=== PATIENT | female | born 1995 | race Two or more races ===

== ENCOUNTER → 2024-01-28 | Outpatient (CLI) | payer OTHER, SELFPAY ==
[2024-01-28 08:57] LABS: Vitamin B12 548 pg/mL (211-911)
[2024-01-28 09:04] LABS: Iron 34 mcg/dL (50-170)
== END | disposition home or self-care (01) ==
LOC: COPL 07:15
PROVIDERS: PCP Nurse Practitioner Family; Referring Provider Nurse Practitioner Family; Visit Provider Nurse Practitioner Family
DX: D64.9 Anemia, unspecified (principal); R53.83 Other fatigue
CPT/HCPCS: 36415; 82607; 83540

== ENCOUNTER → 2024-03-20 | Outpatient (CLI) | payer OTHER, SELFPAY ==
[2024-03-20 12:36] LABS: Beta HCG,Quantitative 2555 mIU/mL (<5.0)
== END | disposition home or self-care (01) ==
LOC: COPL 11:12
PROVIDERS: PCP Nurse Practitioner Family; Referring Provider Nurse Practitioner Family; Visit Provider Nurse Practitioner Family
DX: Z32.01 Encounter for pregnancy test, result positive (principal)
CPT/HCPCS: 36415; 84702

== ENCOUNTER → 2024-03-21 | Outpatient (CLI) | payer OTHER, SELFPAY ==
[2024-03-21 09:38] LABS: Beta HCG,Quantitative 3301 mIU/mL (<5.0)
== END | disposition home or self-care (01) ==
LOC: COPL 08:27
PROVIDERS: PCP Nurse Practitioner Family; Referring Provider Nurse Practitioner Family; Visit Provider Nurse Practitioner Family
DX: Z32.01 Encounter for pregnancy test, result positive (principal)
CPT/HCPCS: 36415; 84702

== ENCOUNTER 2024-05-15 05:47 | Emergency (ER) | payer OTHER, SELFPAY ==
[2024-05-15 06:29] VITALS: BP 154/76; PULSE 60; RESP 18; TEMP 36.8; O2SAT 100
--- NOTE | 2024-05-15 06:48 | XR_ITS ---
Examination: Complete OB ultrasound, less than 14 weeks, transabdominal Date and time of exam: May 15, 2024 0733 hours INDICATIONS: Onset heavy vaginal bleeding today Technique: Obstetrical ultrasound images less than 14 weeks performed via transabdominal imaging Findings: A normal shaped single intrauterine gestation is present in the uterus. pole 7.0 cm corresponds to 13 weeks 2 day gestational age Cardiac motion 144 BPM Ultrasonographic survey of visible and placental structures unremarkable. Amniotic fluid volume appears appropriate for this estimated gestational age. Right ovary 3.3 cm arterial flow Left ovary 3.4 cm arterial flow IMPRESSION: Viable intrauterine gestation 13 weeks 2 days.
--- NOTE | 2024-05-15 07:07 | PD.EDVAGBL ---
ED OB Contraction Preg RMI/HPI General Chief complaint: Vaginal Bleeding Stated complaint: 14WKs PG Vaginal Bleeding Time Seen by Provider: 05/15/24 06:27 Source: patient Arrival date/time: 05/15/24 05:47 This is a 29-year-old female who presents to the emergency department with complaints of vaginal spotting. Patient is approximately 14 weeks of gestation 1 para 0 A1. Reports that she woke up this morning to urinate and noticed blood in the toilet bowl and a blood clot. Patient denies any pelvic pain or dysuria. No nausea no vomiting no fever. Mode of arrival: ambulatory Limitations: no limitations Related Data Previous Rx's ?Medication ?Instructions ?Recorded peg 3350-electrolytes 227.1 240 ml PO Q10M #1 ea 12/01/18 gram-21.5 gram-6.36gram oral powder packet (Golytely) cephalexin 750 mg capsule (Keflex) 750 mg PO BID #10 caps 11/30/20 meloxicam 7.5 mg tablet 7.5 mg PO QDAY #10 tabs 03/18/22 Allergies Allergy/AdvReac Type Severity Reaction Status Date / Time No Known Allergies Allergy Verified 03/18/22 14:32 Review of Systems Review of Systems Systems Reviewed: All systems reviewed, normal except as documented Narrative Review of Systems: Gen: No fever, no chills, no weight loss EYES: No discharge, no visual changes, no pain HEENT: No ear pain, no congestion, no sore throat PULM: No shortness of breath, no cough, no congestion CV: No chest pain, no dyspnea on exertion, no palpitations GI: No nausea, no vomiting, no diarrhea, no pain, no constipation : No frequency, no urgency, no dysuria, + vaginal bleeding Musc/skel: No joint pain, no back pain Skin: No rash Psyc: No hallucinations, no depression Heme/Lymph: No easy bleeding or bruising tendencies Neuro: No weakness, no headache ED Exam General Limitations: Present no limitations General appearance: Present alert and in no apparent distress Head Head exam: Present atraumatic Eye Eye exam: Present normal appearance, PERRL and EOMI ENT ENT exam: Present normal exam, normal oropharynx and mucous membranes moist Neck Neck exam: Present normal inspection, full ROM and trachea midline Chest Chest inspection: Present normal inspection and symmetric chest wall rise Respiratory Respiratory exam: Present normal lung sounds bilaterally Cardiovascular Cardiovascular exam: Present regular rate, normal rhythm and normal heart sounds Abdominal Exam Abdominal exam: Present soft and normal bowel sounds; Absent distention, tenderness or guarding Extremities Exam Extremities exam: Present normal inspection and full ROM Back Exam Back exam: Present normal inspection and full ROM Neurological Exam Neurological exam: Present alert, oriented X3 and CN II-XII intact Psychiatric Psychiatric exam: Present normal affect and normal mood Skin Skin exam: Present warm, dry, intact and normal color Course Quality Measures none Orders Category Date Time Status US OB <= 14 weeks fetus Stat Exams 05/15/24 06:48 Completed ABO/RH Type Stat Lab 05/15/24 08:13 Completed Beta HCG,Quantitative Stat Lab 05/15/24 08:13 Completed CBC Stat Lab 05/15/24 08:13 Completed Comprehensive Metabolic Panel Stat Lab 05/15/24 08:13 Completed Urinalysis Stat Lab 05/15/24 06:50 Completed Urine Culture Stat Lab 05/15/24 06:50 Received Vital Signs Vital signs: Vital Signs Temperature 98.2 F 05/15/24 06:29 Pulse Rate 60 05/15/24 06:29 Respiratory Rate 18 05/15/24 06:29 Blood Pressure 154/76 H 05/15/24 06:29 Pulse Oximetry (%) 100 05/15/24 06:29 Oxygen Delivery Method Room Air 05/15/24 06:29 Vaginal Bleeding MDM Narrative MDM Narrative: .Mild bleeding for 1 day. Which has resolved. Patient's vital signs stable patient's ultrasound demonstrates a viable . Patient has normal bleeding at this time no pelvic pain no abdominal pain. Patient will be discharged home for follow-up with her OB Patient data [facility] records [facility] Clinical information provided by:: patient Social determinants that could affect healthcare access:: none Patient has the following chronic illnesses:: None How is presenting disease/condition affected by chronic disease/condition?: no chronic disease Evaluation data The following diagnostics were reviewed and interpreted by me:: lab results and radiology exam(s) Lab and/or radiology exams considered but not ordered:: No Interpretation Summary: See above Examination: Complete OB ultrasound, less than 14 weeks, transabdominal Date and time of exam: May 15, 2024 0733 hours INDICATIONS: Onset heavy vaginal bleeding today Technique: Obstetrical ultrasound images less than 14 weeks performed via transabdominal imaging Findings: A normal shaped single intrauterine gestation is present in the uterus. pole 7.0 cm corresponds to 13 weeks 2 day gestational age Cardiac motion 144 BPM Ultrasonographic survey of visible and placental structures unremarkable. Amniotic fluid volume appears appropriate for this estimated gestational age. Right ovary 3.3 cm arterial flow Left ovary 3.4 cm arterial flow IMPRESSION: Viable intrauterine gestation 13 weeks 2 days. Medications / Prescriptions Medications or Prescriptions considered but not ordered:: No Medication administrations:: None Consultations Consultation(s) initiated? (list below): No Diagnosis Vaginal Bleeding Differential Diagnosis: missed , threatened , dysfunctional uterine bleeding, incomplete and vaginal bleeding Most likely diagnosis given after review of the tests above:: Threatened Admission Indicated Admission indicated?: not indicated Admission Request Was there a request for admission?: No Disposition Plan Disposition Plan: Discharge Discharge Attestation Discharge Attestation: The patient and all family members were given an opportunity to ask questions and understood the discharge instructions. Discharge instructions specifically effects, indications for sooner follow up or return to the emergency department, and the expected course of current diagnosis. Patient condition: Stable Discharge Plan Plan Patient Disposition: HOME (Self Care) Patient condition on transfer: Stable Prescriptions/Referrals Prescriptions/Med Rec: No Action Golytely 227.1-21.5-6.36 gram powder in packet 240 ml PO Q10M Qty: 1 0RF Rx Instructions: until fecal effluent is clear; do not exceed a total volume [id number] mL cephalexin [Keflex] 750 mg capsule 750 mg PO BID Qty: 10 0RF meloxicam 7.5 mg tablet 7.5 mg PO QDAY Qty: 10 0RF Referrals: No Primary/Family,Physician [Primary Care Provider] - In 1 week Problem List Clinical Impression: Vaginal bleeding, Threatened Patient/Caregiver Discharge Instructions Discharge Activity: activity as tolerated Education Materials: ED Possible Miscarriage ... Additional Instructions: It is very important that you follow-up with your EN[facility]IR[facility]OTE[facility]IST for the bleeding 2 days.. Your ultrasound demonstrates a viable intrauterine positive of 13 weeks. Please no heavy lifting, drink plenty of water. Your hCG is a good number for your . [id number] Return to the emergency department this any worsening symptoms any condition. Print Language: Zambian Stand Alone Forms: Dary Award Info., Work/School Release, Patient Portal Info Letter DISHA/BUSINESS OPERATIONS CONSULTANT Supervising Physician PA/BUSINESS OPERATIONS CONSULTANT Supervising Physician: Dr Winkler
[2024-05-15 07:24] LABS: Collection Type, Urine Clean Catch
[2024-05-15 07:39] LABS: Bacteria,Urine Rare; Bilirubin,Urine Negative (Negative); Blood,Urine 2+ (Negative); Clarity,Urine Clear (Clear/Hazy); Color,Urine Lt-Yellow (Lt Yel-Yel); Glucose, Urine Negative (Negative); Ketones,Urine Negative (Negative); Leukocyte Esterase,Urine Negative (Negative); Nitrite,Urine Negative (Negative); PH,Urine 6.5 (5.0-7.0); Protein,Urine Negative (Neg - Trace); RBC,Urine 2 /hpf (0-3); Specific Gravity,Urine 1.008 (1.001-1.035); Squamous Epithelial Cell,Urine 4 /hpf (0-5); Urobilinogen,Urine Negative mg/dL (0.0-1.0); WBC,Urine 2 /hpf (0-5)
[2024-05-15 08:12] VITALS: BP 166/80; PULSE 76; RESP 17; TEMP 36.6; O2SAT 99
[2024-05-15 08:44] LABS: Basophils % (Auto) 0 % (0-2.5); Eosinophils % (Auto) 0 % (0-10); Hematocrit 33.8 % (36.0-46.0); Hemoglobin 11.4 g/dL (12.0-16.0); Immature Granulocytes % (Auto) 0 % (0-0); Immature Granulocytes Auto 0.04 Thou/mm3 (0.00-0.00); Lymphocytes # (Auto) 2.2 Thou/mm3 (1.0-4.8); Lymphocytes % (Auto) 22 % (10-50); Mean Corpuscular HGB Conc 33.7 g/dl (31.0-37.0); Mean Corpuscular Hemoglobin 26.8 pg (25.0-35.0); Mean Corpuscular Volume 79 fL (80-100); Monocytes # (Auto) 0.4 Thou/mm3 (0.0-0.8); Monocytes % (Auto) 4 % (0-12); Neutrophils # (Auto) 7.5 Thou/mm3 (1.8-7.7); Neutrophils % (Auto) 74 % (37-80); Nucleated Red Blood Cell % 0 /100 WBC (0); Platelet Count 287 Thou/mm3 (140-440); RDW Standard Deviation 49.3 fL (36.4-46.3); Red Blood Count 4.26 Miln/mm3 (4.00-5.20); White Blood Count 10.2 Thou/mm3 (3.6-11.0)
[2024-05-15 09:04] LABS: Alanine Aminotransferase 11 U/L (10-49); Albumin, Serum 4.2 gm/dL (3.5-5.0); Albumin/Globulin Ratio 1.4 (1.2-2.2); Alkaline Phosphatase 72 U/L (46-116); Anion Gap 11 (7-16); Aspartate Amino Transferase 13 U/L (0-34); BUN/Creatinine Ratio 12 Ratio (12-20); Bilirubin,Total 0.2 mg/dL (0.3-1.2); Blood Urea Nitrogen 6 mg/dL (9-23); Calcium 9.6 mg/dL (8.3-10.6); Calcium (Corrected) 9.6 mg/dL (8.5-10.1); Carbon Dioxide 24.9 mMol/L (20.0-31.0); Chloride 102 mMol/L (98-107); Creatinine (Component) 0.5 mg/dL (0.6-1.3); Globulin 2.9 gm/dL (2.3-3.5); Glucose 85 mg/dL (74-106); Osmolality,Calculated 272 (275-295); Potassium 4.1 mMol/L (3.4-5.1); Sodium 138 mMol/L (136-145); Total Protein 7.1 gm/dL (5.7-8.2); eGFR > 60 See Note
[2024-05-15 09:38] LABS: Beta HCG,Quantitative 38733 mIU/mL (<5.0)
[2024-05-15 10:00] VITALS: BP 109/77; PULSE 89; RESP 12; TEMP 36.7; O2SAT 100
== END 2024-05-15 10:42 | disposition home or self-care (01) ==
PROVIDERS: Nurse Practitioner Primary Care; Emergency Provider Emergency Medicine
DX: O20.0 Threatened abortion (principal); Z3A.13 13 weeks gestation of pregnancy
CPT/HCPCS: 36415; 76801; 80053; 81001; 84702; 85025; 86900; 86901; 87086; 99284

== ENCOUNTER 2024-07-06 11:22 | Outpatient (CLI) | payer OTHER, SELFPAY ==
[2024-07-06 11:33] VITALS: BP 122/82; PULSE 79
== END 2024-07-06 11:45 | disposition home or self-care (01) ==
LOC: S4S1 11:23 → S4SX 11:23
PROVIDERS: Referring Provider Obstetrics & Gynecology; Visit Provider Obstetrics & Gynecology
DX: Z34.02 Encounter for supervision of normal first pregnancy, second trimester (principal); Z3A.20 20 weeks gestation of pregnancy

== ENCOUNTER 2024-07-25 10:58 | Emergency (ER) | payer OTHER, SELFPAY ==
[2024-07-25 11:13] VITALS: BP 142/92; PULSE 99; RESP 20; TEMP 37; O2SAT 98; BMI 57.8
--- NOTE | 2024-07-25 11:34 | EKG_ITS ---
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
--- NOTE | 2024-07-25 11:38 | PD.EDHA ---
ED Headache RME/HPI General Chief Complaint: Headache Stated Complaint: HEADACHE, NUASEA, DIZZY; 23 WKS GRAV1 PARA0 Time Seen by Provider: 07/25/24 11:10 Arrival date/time: 07/25/24 10:58 Limitations: no limitations RME / HPI RME / HPI Narrative: 29 year old female with no stated chronic medical history, currently 23 weeks gestational age, presents to the ED for evaluation of headache today. Reports headache began 2 days ago and has had no relief with Tylenol, last taken at 09:00 AM today. Additionally reports she occasionally feels her heart racing . Patient states her last ultrasound performed ~ 3 weeks ago was normal. Denies any history of similar symptoms. Denies fevers, chills, chest pain, cough, shortness of breath, abdominal pain, back pain, or vaginal spotting. Denies any history of hypertension. Related Data Home Medications ?Medication ?Instructions ?Recorded ?Confirmed aspirin 81 mg chewable tablet 81 mg PO QDAY 07/06/24 07/06/24 (Aspirin Childrens) ferrous sulfate 325 mg (65 mg mg PO 07/06/24 iron) tablet,delayed release sertraline 50 mg tablet mg 07/06/24 Previous Rx's ?Medication ?Instructions ?Recorded cephalexin 500 mg capsule 500 mg PO QID #14 caps 07/25/24 Allergies Allergy/AdvReac Type Severity Reaction Status Date / Time No Known Allergies Allergy Verified 07/06/24 11:29 Review of Systems Review of Systems Systems Reviewed: All systems reviewed, normal except as documented Past Medical History Past Medical History NEUROLOGIC: Negative Neurological Disorders CARDIAC: Negative Cardiac Disorders or Congestive Heart Failure RESPIRATORY: Negative Chronic Obstructive Pulmonary Disease (COPD) GASTROINTESTINAL: Negative Gastrointestinal Disorders GENITOURINARY: Negative Genitourinary Disorders or Renal Disease MUSCULOSKELETAL: Negative Musculoskeletal Disorders ENDOCRINE: Negative Diabetes Mellitus Type 1 or Diabetes Mellitus Type 2 PSYCHO/SOCIAL: Negative Psychiatric Problems OTHER HISTORY: Negative Hospitalization Social History SMOKING STATUS: Never smoker ED Exam General Limitations: Present no limitations General appearance: Present alert and in no apparent distress Head Head exam: Present atraumatic, normocephalic and normal inspection Eye Eye exam: Present normal appearance, PERRL and EOMI ENT ENT exam: Present normal exam, normal oropharynx and mucous membranes moist Neck Neck exam: Present normal inspection, full ROM and trachea midline Chest Chest inspection: Present normal inspection and symmetric chest wall rise Respiratory Respiratory exam: Present normal lung sounds bilaterally Cardiovascular Cardiovascular exam: Present regular rate, normal rhythm and normal heart sounds Abdominal Exam Abdominal exam: Present soft, normal bowel sounds and other (Fundal height is 26cm and heart tones are 160 bpm. ) Extremities Exam Extremities exam: Present normal inspection and full ROM Back Exam Back exam: Present normal inspection and full ROM Neurological Exam Neurological exam: Present alert, oriented X3 and CN II-XII intact Psychiatric Psychiatric exam: Present normal affect and normal mood Skin Skin exam: Present warm, dry, intact and normal color Course Quality Measures none Orders Category Date Time Status EKG (ED ONLY) *Do not use* NOW Care 07/25/24 11:34 Completed Discharge Routine Discharge 07/25/24 13:25 Active EKG (ED Only) Stat Exams 07/25/24 11:34 Draft CBC Stat Lab 07/25/24 11:53 Completed CMP [Comprehensive Metabolic Panel] Stat Lab 07/25/24 11:53 Completed TSH [Thyroid Stimulating Hormone] Stat Lab 07/25/24 11:53 Completed Troponin I Stat Lab 07/25/24 11:53 Completed Urinalysis Stat Lab 07/25/24 12:00 Completed Vital Signs Vital signs: Vital Signs Temperature 98.6 F 07/25/24 11:13 Pulse Rate 99 07/25/24 11:13 Respiratory Rate 20 07/25/24 11:13 Blood Pressure 142/92 H 07/25/24 11:13 Pulse Oximetry (%) 98 07/25/24 11:13 Oxygen Delivery Method Room Air 07/25/24 11:13 Pulse ox is 98% on room air which is adequate. Headache MDM Narrative MDM Narrative:: Caryn Grimm am scribing for and in the presence of Dr. Hong. Patient data External records reviewed:: [facility] previous records (I reviewed ED visit on 05/15/2024 ) Clinical information provided by:: patient Social determinants that could affect healthcare access:: none Patient has the following chronic illnesses:: None How is presenting disease/condition affected by chronic disease/condition?: no chronic disease Evaluation data The following diagnostics were reviewed and interpreted by me:: lab results and EKG tracing(s) Lab and/or radiology exams considered but not ordered:: None Interpretation Summary: All labs are normal for see Medications / Prescriptions Medications or Prescriptions considered but not ordered:: None Medication administrations:: None Consultations Consultation(s) initiated? (list below): No Diagnosis Differential diagnosis headache: migraine, tension headache, headache and other (Dehydration, anxiety ) Most likely diagnosis given after review of the tests above:: Asymptomatic bacteriuria. No preeclampsia Admission Indicated Admission indicated?: not indicated Admission Request Was there a request for admission?: No Disposition Plan Disposition Plan: Discharge Discharge Attestation Discharge Attestation: The patient and all family members were given an opportunity to ask questions and understood the discharge instructions. Discharge instructions specifically effects, indications for sooner follow up or return to the emergency department, and the expected course of current diagnosis. Patient condition: Stable Discharge Plan Plan Patient Disposition: HOME (Self Care) Patient condition on transfer: Stable Prescriptions/Referrals Prescriptions/Med Rec: New cephalexin 500 mg capsule 500 mg PO QID Qty: 14 0RF No Action ferrous sulfate 325 mg (65 mg iron) tablet,delayed release (DR/EC) PO Patient Comments: TAKE 1 TABLET BY MOUTH EVERY DAY sertraline 50 mg tablet Patient Comments: TAKE 1 TABLET BY MOUTH EVERY DAY FOR 90 DAYS aspirin [Aspirin Childrens] 81 mg tablet,chewable 81 mg PO QDAY Patient Comments: takes 2 tabs daily Referrals: Nghia Reyes [Primary Care Provider] - In 1 week Problem List Clinical Impression: Asymptomatic bacteriuria during , Headache, 23 weeks gestation of Patient/Caregiver Discharge Instructions Discharge Activity: activity as tolerated Education Materials: Adapting to Second ..., Self-Care for Headaches Print Language: Finnish Stand Alone Forms: Dary Award Info., Patient Portal Info Letter
[2024-07-25 12:06] LABS: Basophils % (Auto) 0 % (0-2.5); Eosinophils # (Auto) 0.1 Thou/mm3 (0.0-0.5); Eosinophils % (Auto) 1 % (0-10); Hematocrit 32.9 % (36.0-46.0); Hemoglobin 11.2 g/dL (12.0-16.0); Immature Granulocytes % (Auto) 0 % (0-0); Immature Granulocytes Auto 0.05 Thou/mm3 (0.00-0.00); Lymphocytes # (Auto) 2.7 Thou/mm3 (1.0-4.8); Lymphocytes % (Auto) 20 % (10-50); Mean Corpuscular Hemoglobin 27.5 pg (25.0-35.0); Mean Corpuscular Volume 81 fL (80-100); Monocytes # (Auto) 0.6 Thou/mm3 (0.0-0.8); Monocytes % (Auto) 5 % (0-12); Neutrophils # (Auto) 9.7 Thou/mm3 (1.8-7.7); Neutrophils % (Auto) 74 % (37-80); Nucleated Red Blood Cell % 0 /100 WBC (0); Platelet Count 351 Thou/mm3 (140-440); RDW Standard Deviation 44.9 fL (36.4-46.3); Red Blood Count 4.08 Miln/mm3 (4.00-5.20); White Blood Count 13.1 Thou/mm3 (3.6-11.0)
[2024-07-25 12:08] LABS: Collection Type, Urine Clean Catch
[2024-07-25 12:14] LABS: Bacteria,Urine 3+; Bilirubin,Urine Negative (Negative); Blood,Urine Negative (Negative); Clarity,Urine Clear (Clear/Hazy); Color,Urine Colorless (Lt Yel-Yel); Glucose, Urine Negative (Negative); Ketones,Urine Negative (Negative); Leukocyte Esterase,Urine Negative (Negative); Nitrite,Urine Negative (Negative); Protein,Urine Negative (Neg - Trace); RBC,Urine 1 /hpf (0-3); Specific Gravity,Urine 1.003 (1.001-1.035); Squamous Epithelial Cell,Urine 1 /hpf (0-5); Urobilinogen,Urine Negative mg/dL (0.0-1.0); WBC,Urine 1 /hpf (0-5)
[2024-07-25 12:38] LABS: Alanine Aminotransferase 10 U/L (10-49); Albumin, Serum 4.1 gm/dL (3.5-5.0); Albumin/Globulin Ratio 1.4 (1.2-2.2); Alkaline Phosphatase 96 U/L (46-116); Anion Gap 8 (7-16); Aspartate Amino Transferase 10 U/L (0-34); BUN/Creatinine Ratio 12 Ratio (12-20); Bilirubin,Total 0.2 mg/dL (0.3-1.2); Blood Urea Nitrogen 7 mg/dL (9-23); Carbon Dioxide 26.8 mMol/L (20.0-31.0); Chloride 103 mMol/L (98-107); Creatinine (Component) 0.6 mg/dL (0.6-1.3); Estimated Creatinine Clearance 194.3 mL/min (>60); Globulin 2.9 gm/dL (2.3-3.5); Glucose 65 mg/dL (74-106); Osmolality,Calculated 271 (275-295); Potassium 4.2 mMol/L (3.4-5.1); Sodium 138 mMol/L (136-145); Thyroid Stimulating Hormone 1.33 uIU/mL (0.55-4.78); Troponin I < 0.002 ng/mL (0.0-0.045); eGFR > 60 See Note
== END 2024-07-25 14:01 | disposition home or self-care (01) ==
PROVIDERS: Emergency Provider Emergency Medicine; PCP Obstetrics & Gynecology
DX: O26.892 Other specified pregnancy related conditions, second trimester (principal); Z3A.23 23 weeks gestation of pregnancy; R82.71 Bacteriuria; R51.9 Headache, unspecified
CPT/HCPCS: 36415; 80053; 81001; 84443; 84484; 85025; 93005; 99283

== ENCOUNTER 2024-08-31 12:17 | Observation (INO) | payer OTHER, SELFPAY ==
[2024-08-31] VITALS (8 sets, daily range): BP systolic 120–147; BP diastolic 65–106; PULSE 83–97; RESP 18–99; TEMP 36.8; O2SAT 99; BMI 59.1
[2024-08-31 13:28] LABS: Collection Type, Urine Clean Catch; RBC,Urine 0 /hpf (0-3)
[2024-08-31 13:42] LABS: Basophils % (Auto) 0 % (0-2.5); Eosinophils % (Auto) 0 % (0-10); Hemoglobin 10.7 g/dL (12.0-16.0); Immature Granulocytes % (Auto) 0 % (0-0); Immature Granulocytes Auto 0.04 Thou/mm3 (0.00-0.00); Lymphocytes # (Auto) 2.3 Thou/mm3 (1.0-4.8); Lymphocytes % (Auto) 20 % (10-50); Mean Corpuscular HGB Conc 34.5 g/dl (31.0-37.0); Mean Corpuscular Hemoglobin 27.7 pg (25.0-35.0); Mean Corpuscular Volume 80 fL (80-100); Monocytes # (Auto) 0.5 Thou/mm3 (0.0-0.8); Monocytes % (Auto) 5 % (0-12); Neutrophils # (Auto) 8.5 Thou/mm3 (1.8-7.7); Neutrophils % (Auto) 75 % (37-80); Nucleated Red Blood Cell % 0 /100 WBC (0); Platelet Count 360 Thou/mm3 (140-440); RDW Standard Deviation 44.1 fL (36.4-46.3); Red Blood Count 3.86 Miln/mm3 (4.00-5.20); White Blood Count 11.5 Thou/mm3 (3.6-11.0)
[2024-08-31 13:49] LABS: Alanine Aminotransferase 16 U/L (10-49); Albumin/Globulin Ratio 1.6 (1.2-2.2); Alkaline Phosphatase 110 U/L (46-116); Anion Gap 9 (7-16); BUN/Creatinine Ratio 10 Ratio (12-20); Bilirubin,Total 0.2 mg/dL (0.3-1.2); Blood Urea Nitrogen 6 mg/dL (9-23); Carbon Dioxide 26.2 mMol/L (20.0-31.0); Chloride 104 mMol/L (98-107); Creatinine (Component) 0.6 mg/dL (0.6-1.3); Estimated Creatinine Clearance 197.3 mL/min (>60); Globulin 2.5 gm/dL (2.3-3.5); Glucose 74 mg/dL (74-106); Osmolality,Calculated 274 (275-295); Potassium 4.6 mMol/L (3.4-5.1); Sodium 139 mMol/L (136-145); Total Protein 6.5 gm/dL (5.7-8.2); Uric Acid 3.6 mg/dL (3.1-7.8); eGFR > 60 See Note
[2024-08-31 13:53] LABS: Bacteria,Urine 1+; Bilirubin,Urine Negative (Negative); Blood,Urine Negative (Negative); Clarity,Urine Clear (Clear/Hazy); Glucose, Urine Negative (Negative); Ketones,Urine Negative (Negative); Leukocyte Esterase,Urine Negative (Negative); Nitrite,Urine Negative (Negative); PH,Urine 6.5 (5.0-7.0); Protein,Urine Negative (Neg - Trace); Specific Gravity,Urine 1.004 (1.001-1.035); Squamous Epithelial Cell,Urine < 1 /hpf (0-5); Urobilinogen,Urine Negative mg/dL (0.0-1.0); WBC,Urine < 1 /hpf (0-5)
[2024-08-31 13:53] LABS: Partial Thromboplastin Time 30.5 Seconds (22.0-36.0); Prothrombin Time 11.1 Seconds (9.0-12.2)
[2024-08-31 13:57] LABS: FFN Specimen Descripton Clr Colrless Aqueous; Fetal Fibronectin Negative (Negative)
[2024-08-31 13:57] LABS: Color,Urine Lt-Yellow (Lt Yel-Yel)
[2024-08-31 13:58] LABS: Fibrinogen 708 mg/dL (175-375)
[2024-08-31 14:08] LABS: Creatinine,Random Urine 15 mg/dL (30-125); Protein Total, Random Urine < 6 mg/dL (1-14)
== END 2024-08-31 15:03 | disposition home or self-care (01) ==
PROVIDERS: Admitting Provider Obstetrics & Gynecology; Visit Provider Obstetrics & Gynecology
DX: O26.853 Spotting complicating pregnancy, third trimester (principal); O26.893 Other specified pregnancy related conditions, third trimester; R10.2 Pelvic and perineal pain; Z3A.28 28 weeks gestation of pregnancy
CPT/HCPCS: 36415; 59899; 80053; 81001; 82570; 82731; 84156; 84550; 85025; 85384; 85610; 85730

== ENCOUNTER 2024-09-05 15:44 | Observation (INO) | payer OTHER, SELFPAY ==
[2024-09-05] VITALS (39 sets, daily range): BP systolic 124; BP diastolic 65–69; PULSE 77–101; RESP 20–98; TEMP 36.8; O2SAT 98–100; BMI 63.8
--- NOTE | 2024-09-05 16:43 | XR_ITS ---
Examination: OB Transvaginal ultrasound of the pelvis, complete Technique: Transvaginal sonographic images pelvis performed using joy scale imaging Exam date and time: September 05, 2024 at 1708 hours INDICATION: Decreased movement today, cervical funneling on examination yesterday FINDINGS: Cervix 4.2 cm Cervical funneling, internal os 2.3 cm IMPRESSION: Cervical funneling.
--- NOTE | 2024-09-05 16:43 | XR_ITS ---
Examination: Complete OB ultrasound greater than 14 weeks Date and time of exam: September 05, 2024 1656 hours INDICATIONS: Decreased movement, outside examination cervical funneling Findings: Viable intrauterine single fetus with single amniotic sac presentation cephalic Cardiac motion 141 BPM Placenta anterior grade 1. Umbilical cord insertion 3 vessel seen. Amniotic fluid index 15.5 cm Cervix poorly visualized 2.2 cm in length spine maternal right Ovaries obscured by bowel gas. Composite estimated gestational age based on BPD, head circumference, abdominal circumference, femur length is 29 weeks 6 days, estimated weight 1411 g. Survey of intracranial anatomy, spinal anatomy, abdominal anatomy, four-chamber heart performed with no abnormalities identified. Impression: Viable intrauterine gestation cephalic presentation.
[2024-09-05] MEDS: NIFEdipine 10 MG CAPSULE PO (17:27)
[2024-09-05 17:36] LABS: Collection Type, Urine Clean Catch; RBC,Urine 0 /hpf (0-3); WBC,Urine 0 /hpf (0-5)
[2024-09-05 17:49] LABS: Bacteria,Urine Rare; Bilirubin,Urine Negative (Negative); Blood,Urine Negative (Negative); Clarity,Urine Clear (Clear/Hazy); Color,Urine Lt-Yellow (Lt Yel-Yel); Glucose, Urine Negative (Negative); Ketones,Urine Negative (Negative); Leukocyte Esterase,Urine Negative (Negative); Nitrite,Urine Negative (Negative); Protein,Urine Negative (Neg - Trace); Squamous Epithelial Cell,Urine < 1 /hpf (0-5); Urobilinogen,Urine Negative mg/dL (0.0-1.0)
[2024-09-05 18:16] LABS: FFN Specimen Descripton Thick/Mucous-Like
[2024-09-05] MEDS: RINGERS LACTATED 1000 ML 1,000 ML 999 ML IV (18:30)
[2024-09-05] MEDS: BETAMET ACET/BETAMET NA PH (Celestone) 6 MG/ML VIAL 12 MG IM (18:38)
[2024-09-05] MEDS: TERBUTALINE SULF INJ 1 MG/ML VIAL 0.25 MG SC (18:38)
[2024-09-05 19:22] LABS: Basophils % (Auto) 0 % (0-2.5); Eosinophils # (Auto) 0.1 Thou/mm3 (0.0-0.5); Eosinophils % (Auto) 1 % (0-10); Hematocrit 28.9 % (36.0-46.0); Immature Granulocytes % (Auto) 0 % (0-0); Immature Granulocytes Auto 0.04 Thou/mm3 (0.00-0.00); Lymphocytes # (Auto) 2.6 Thou/mm3 (1.0-4.8); Lymphocytes % (Auto) 24 % (10-50); Mean Corpuscular HGB Conc 34.6 g/dl (31.0-37.0); Mean Corpuscular Hemoglobin 27.8 pg (25.0-35.0); Mean Corpuscular Volume 80 fL (80-100); Monocytes # (Auto) 0.4 Thou/mm3 (0.0-0.8); Monocytes % (Auto) 4 % (0-12); Neutrophils # (Auto) 7.8 Thou/mm3 (1.8-7.7); Neutrophils % (Auto) 71 % (37-80); Nucleated Red Blood Cell % 0 /100 WBC (0); Platelet Count 329 Thou/mm3 (140-440); RDW Standard Deviation 44.8 fL (36.4-46.3)
== END 2024-09-05 19:42 | disposition home or self-care (01) ==
PROVIDERS: Admitting Provider Specialist; Visit Provider Specialist
DX: O36.8130 Decreased fetal movements, third trimester, not applicable or unspecified (principal); Z3A.29 29 weeks gestation of pregnancy
CPT/HCPCS: 36415; 59025; 59899; 76805; 76817; 81001; 82731; 85025; 86850; 86900; 86901; 87086; 96372; J0702; J3105; J7120; A9270

== ENCOUNTER 2024-09-06 18:00 | Outpatient (CLI) | payer OTHER, SELFPAY ==
[2024-09-06] VITALS (20 sets, daily range): BP systolic 133; BP diastolic 94; PULSE 66–88; RESP 18–98; TEMP 36.6; O2SAT 97–99; BMI 60.0
[2024-09-06] MEDS: BETAMET ACET/BETAMET NA PH (Celestone) 6 MG/ML VIAL 12 MG IM (18:42)
== END 2024-09-06 19:50 | disposition home or self-care (01) ==
LOC: S4SX 18:10 → S4S1 18:10
PROVIDERS: Referring Provider Specialist; Visit Provider Specialist
DX: Z34.03 Encounter for supervision of normal first pregnancy, third trimester (principal); Z3A.29 29 weeks gestation of pregnancy
CPT/HCPCS: 96372; J0702

== ENCOUNTER 2024-09-07 15:09 | Observation (INO) | payer OTHER, SELFPAY ==
[2024-09-07] VITALS (14 sets, daily range): BP systolic 122; BP diastolic 62; PULSE 75–98; RESP 18–99; TEMP 36.7; O2SAT 99–100; BMI 59.3
--- NOTE | 2024-09-07 15:52 | XR_ITS ---
Examination: OB Transvaginal ultrasound of the pelvis, complete Technique: Transvaginal sonographic images pelvis performed using joy scale imaging Exam date and time: September 07, 2024 at 1636 hours INDICATIONS: Vaginal discharge beginning today, patient states lost mucous plug 4 hours ago FINDINGS: Cervix 4.9 cm, internal os measures 1.4 cm. Cervix contains fluid with debris/sludge Cardiac motion 167 BPM IMPRESSION:: Cervix 4.9 cm, internal os 1.4 cm
--- NOTE | 2024-09-07 15:53 | XR_ITS ---
Examination: age limited TECHNIQUE: Limited transabdominal sonographic images pelvis Date and time: September 07, 2024 1631 hours INDICATIONS: Vaginal discharge today, unknown presentation. FINDINGS: Viable intrauterine gestation in transverse presentation, head left upper quadrant Cardiac motion 148 BPM IMPRESSION: Viable intrauterine gestation transverse presentation
[2024-09-07] MEDS: TERBUTALINE SULF INJ 1 MG/ML VIAL 0.25 MG SC (16:03)
== END 2024-09-07 17:45 | disposition home or self-care (01) ==
PROVIDERS: Admitting Provider Specialist; Visit Provider Specialist
DX: O32.2XX0 Maternal care for transverse and oblique lie, not applicable or unspecified (principal); Z3A.29 29 weeks gestation of pregnancy
CPT/HCPCS: 59025; 59899; 76815; 76817; 96372; G0378; J3105

== ENCOUNTER 2024-10-02 13:09 | Observation (INO) | payer OTHER, SELFPAY ==
[2024-10-02 13:15] VITALS: BP 131/77; PULSE 92; RESP 16; RESP 98; TEMP 37.1
[2024-10-02 13:25] VITALS: BP 131/77; PULSE 92; RESP 16; TEMP 37.1; O2SAT 98
[2024-10-02 13:34] VITALS: BP 141/66; PULSE 90
[2024-10-02 13:42] VITALS: BMI 59.8
[2024-10-02 13:44] VITALS: BP 117/70; PULSE 92
== END 2024-10-02 14:05 | disposition home or self-care (01) ==
PROVIDERS: Admitting Provider Obstetrics & Gynecology; Visit Provider Obstetrics & Gynecology
DX: O36.8190 Decreased fetal movements, unspecified trimester, not applicable or unspecified (principal); O26.899 Other specified pregnancy related conditions, unspecified trimester; R03.0 Elevated blood-pressure reading, without diagnosis of hypertension; Z3A.00 Weeks of gestation of pregnancy not specified
CPT/HCPCS: 59025; 59899